=== PATIENT | female | born 1935 | race Caucasian/White ===

== ENCOUNTER → 2020-04-28 | Outpatient (CLI) | payer MEDICARE ==
--- NOTE | 2020-04-29 11:03 | Diagnostic Imaging Report ---
Procedure: XRAY Chest 1v Reason for study: Reason For Exam: COUGH Comparison films: None. FINDINGS: There is a cardiac pacer in the left upper chest. Vascularity is normal. Hazy bibasilar infiltrates noted. There is cardiomegaly. CP angles are sharp. The bony thorax appear unremarkable. IMPRESSION: Hazy bibasilar infiltrates.
== END | disposition home or self-care (01) ==
LOC: RAD 17:11
DX: R05 Cough (principal)
CPT/HCPCS: 71045